=== PATIENT | male | born 1940 | race Caucasian/White ===

== ENCOUNTER 2022-04-02 15:10 | Emergency (ER) | payer OTHER ==
[~2022-04-02] VITALS: Ht 180.3 cm; Wt 93.4 kg
[~2022-04-02 15:10] MED LIST: ASPIR-TRIN325 MG PO; BENAZEPRIL HCL20 MG PO; CLOPIDOGREL75 MG PO; FLOMAX0.4 MG PO; HYDROCODON-ACE1 EACH PO; METOPROLOL TART25 MG PO; OMEGA-3100 MG; PRAVASTATIN SOD80 MG PO; ZYRTEC10 M3 PO; eliquis PO
[2022-04-02 15:56] LABS: BASOPHILS % 0.4 % (0.0-1.0); EOSINOPHILS # (AUTO) 0.1 (0.0-0.4); EOSINOPHILS % 1.5 % (0.0-6.0); HEMATOCRIT 44.4 % (38.2-49.6); HEMOGLOBIN 15.1 g/dL (14.0-18.0); LYMPHOCYTES # (AUTO) 1.3 (1.0-3.2); LYMPHOCYTES % 19.3 % (18.0-39.1); MEAN CORPUSCULAR HEMOGLOBIN 32.2 pg (28-32); MEAN CORPUSCULAR VOLUME 94.7 fL (81-99); MONOCYTES # (AUTO) 0.4 (0.2-0.8); MONOCYTES % 5.2 % (4.4-11.3); NEUTROPHILS # (AUTO) 4.9 (2.1-6.9); NEUTROPHILS % 73.5 % (38.7-80.0); PLATELET COUNT 191 x10e3/uL (140-360); RED BLOOD COUNT 4.69 x10e6/uL (4.3-5.7); RED CELL DISTRIBUTION WIDTH 11.9 % (11.7-14.4)
[2022-04-02 16:09] LABS: INR 1.98
[2022-04-02 16:18] LABS: ALBUMIN/GLOBULIN RATIO 1.3 (0.8-2.0); ANION GAP 13.9 mmol/L (8-16); CALCIUM 9.3 mg/dL (8.4-10.2); CREATININE, SERUM 1.04 mg/dL (0.72-1.25); POTASSIUM 3.9 mmol/L (3.5-5.1)
[2022-04-02] MEDS ORDERED: TETANUS/DIPHTHERIA TOX ADULT 0.5 ML SYR IM ONE (16:30)
[2022-04-02] MEDS ORDERED: Morphine 4mg INJECTION 4 MG/ML INJ IV ONE (16:30)
[2022-04-02] MEDS ORDERED: Morphine 2mg Syringe 2 MG/ML SYR ONE (16:36)
[2022-04-02] MEDS ORDERED: Morphine 4mg INJECTION 4 MG/ML INJ IV PRN (16:45)
[2022-04-02] MEDS ORDERED: HYDRALAZINE HCL 20 MG/ML VIAL IV PRN (16:45)
[2022-04-02] MEDS ORDERED: HYDROCODON-ACE1 EA11 PO (16:56)
[2022-04-02] MEDS ORDERED: ONDANSETRON HCL INJ 2MG/ML 2ML 2 MG/ML VIAL IV STA (17:12)
== END 2022-04-02 18:05 | disposition home or self-care (01) ==
LOC: ER 15:25
DX: S00.83XA Contusion of other part of head, initial encounter (principal); W01.198A Fall on same level from slipping, tripping and stumbling with subsequent striking against other object, initial encounter; Y92.89 Other specified places as the place of occurrence of the external cause; I10 Essential (primary) hypertension; Z86.73 Personal history of transient ischemic attack (TIA), and cerebral infarction without residual deficits
CPT/HCPCS: 36415; 70450; 70486; 71045; 72125; 72170; 80053; 84484; 85025; 85610; 90471; 90714; 93005; 99284; J2270 ×2; J2405

== ENCOUNTER 2024-01-02 13:58 | Inpatient (IN) | payer MEDICARE, OTHER ==
[~2024-01-02] VITALS: Ht 180.3 cm; Wt 93.4 kg
[~2024-01-02 13:58] MED LIST changes: +HYDROCODON-ACE1 EA11 PO
[2024-01-02 14:32] LABS: BASOPHILS % 0.5 % (0.0-1.0); EOSINOPHILS # (AUTO) 0.2 (0.0-0.4); EOSINOPHILS % 3.1 % (0.0-6.0); HEMATOCRIT 43.5 % (38.2-49.6); HEMOGLOBIN 14.8 g/dL (14.0-18.0); LYMPHOCYTES # (AUTO) 1.3 (1.0-3.2); MEAN CORPUSCULAR HEMOGLOBIN 33.3 pg (28-32); MONOCYTES # (AUTO) 0.2 (0.2-0.8); MONOCYTES % 4.2 % (4.4-11.3); NEUTROPHILS # (AUTO) 3.8 (2.1-6.9); NEUTROPHILS % 68.8 % (38.7-80.0); PLATELET COUNT 182 x10e3/uL (140-360); RED BLOOD COUNT 4.44 x10e6/uL (4.3-5.7); RED CELL DISTRIBUTION WIDTH 12.1 % (11.7-14.4); WHITE BLOOD COUNT 5.52 x10e3/uL (4.8-10.8)
[2024-01-02 14:41] LABS: INR 1.99; PROTHROMBIN TIME 23.7 seconds (11.9-14.5)
[2024-01-02 14:42] LABS: PARTIAL THROMBOPLASTIN TIME 31.8 seconds (23.8-35.5)
[2024-01-02 14:48] LABS: ALANINE AMINOTRANSFERASE 16 IU/L (0-55); ALBUMIN 3.6 g/dL (3.5-5.0); ALBUMIN/GLOBULIN RATIO 1.2 (0.8-2.0); ALKALINE PHOSPHATASE 52 IU/L (40-150); ANION GAP 14.3 mmol/L (8-16); BILIRUBIN,TOTAL 0.7 mg/dL (0.2-1.2); BLOOD UREA NITROGEN 15 mg/dL (7-26); BUN/CREATININE RATIO 15 (6-25); CALCIUM 8.6 mg/dL (8.4-10.2); CARBON DIOXIDE 21 mmol/L (22-29); CHLORIDE 109 mmol/L (98-107); CREATINE KINASE 80 IU/L (30-200); CREATININE, SERUM 1.01 mg/dL (0.72-1.25); EST GLOMERULAR FILTRATION RATE 75 ML/MIN (>=60); GLUCOSE 189 mg/dL (74-118); POTASSIUM 4.3 mmol/L (3.5-5.1); SODIUM 140 mmol/L (136-145); TOTAL PROTEIN 6.5 g/dL (6.5-8.1)
[2024-01-02 14:54] LABS: TROPONIN I < 0.001 ng/mL (0-0.300)
[2024-01-02 15:08] LABS: BILIRUBIN,URINE NEGATIVE (NEGATIVE); CLARITY,URINE SL CLOUDY (CLEAR); COLOR,URINE YELLOW (YELLOW); GLUCOSE, URINE NEGATIVE (NEGATIVE); KETONES,URINE NEGATIVE (NEGATIVE); LEUKOCYTE ESTERASE ,URINE NEGATIVE (NEGATIVE); NITRITE,URINE NEGATIVE (NEGATIVE); PH,URINE 5.5 (5 - 7); PROTEIN,URINE DIPSTICK NEGATIVE (NEGATIVE); URINE UROBILINOGEN 1 mg/dL (0.2 - 1)
[2024-01-02 15:19] LABS: BACTERIA,URINE FEW /HPF; MUCUS,URINE MODERATE (RARE)
[2024-01-02] MEDS: HYDRALAZINE HCL 20 MG/ML VIAL IV ONE (16:22)
[2024-01-02] MEDS: SODIUM CHLORIDE 0.9% 500ML 500 ML IV ONE (16:22)
[2024-01-02] MEDS: SODIUM CHLORIDE 0.9% 1000ML 1,000 ML IV SCH (17:30)
[2024-01-02] MEDS: FAMOTIDINE 20 MG/2 ML VIAL IV SCH (17:30)
[2024-01-02] MEDS: HYDRALAZINE HCL 20 MG/ML VIAL IV STA (18:01)
[2024-01-02 18:23] VITALS: PULSE 66; RESP 18; TEMP 98.2
[2024-01-02 20:00] VITALS: BP 197/79; PULSE 76; RESP 21; TEMP 97.5; O2SAT 98
[2024-01-02] MEDS: HYDROCODONE/APAP 5MG-325MG TAB PO ONE (20:13)
[2024-01-02] MEDS: ONDANSETRON HCL INJ 2MG/ML 2ML 2 MG/ML VIAL IV PRN (20:51)
[2024-01-02] MEDS: HYDRALAZINE HCL 20 MG/ML VIAL IV PRN (20:51)
[2024-01-02] MEDS: ACETAMINOPHEN 325 MG TAB PO PRN (20:51)
[2024-01-02] MEDS: HYDROCODONE/APAP 5MG-325MG TAB PO PRN (20:52)
[2024-01-02] MEDS ORDERED: FINASTERIDE5 MG PO (21:02)
[2024-01-02] MEDS ORDERED: WARFARIN SODIUM3 MG PO (21:06)
[2024-01-02] MEDS ORDERED: WARFARIN SODIU7.5 MG PO (21:07)
[2024-01-02] MEDS: NITROGLYCERIN 0.4 MG SUBL SL PRN (21:16)
[2024-01-02] MEDS ORDERED: METOPROLOL TARTRATE 25 MG TAB PO SCH (21:30)
[2024-01-02] MEDS: BENAZEPRIL HCL 10 MG TAB PO SCH (22:23)
[2024-01-02] MEDS: METOPROLOL TARTRATE 25 MG TAB PO SCH (22:24)
[2024-01-03] VITALS (7 sets, daily range): BP systolic 130–216; BP diastolic 68–88; PULSE 61–91; RESP 17–20; TEMP 97.6–98.6; O2SAT 96–98
[2024-01-03 08:08] LABS: BASOPHILS # (AUTO) 0.1 (0.0-0.1); BASOPHILS % 0.7 % (0.0-1.0); EOSINOPHILS # (AUTO) 0.2 (0.0-0.4); EOSINOPHILS % 2.3 % (0.0-6.0); HEMATOCRIT 43.5 % (38.2-49.6); HEMOGLOBIN 14.5 g/dL (14.0-18.0); LYMPHOCYTES # (AUTO) 1.5 (1.0-3.2); LYMPHOCYTES % 21.5 % (18.0-39.1); MEAN CORPUSCULAR HEMOGLOBIN 33.1 pg (28-32); MEAN CORPUSCULAR HGB CONC 33.3 g/dL (31-35); MEAN CORPUSCULAR VOLUME 99.3 fL (81-99); MONOCYTES # (AUTO) 0.5 (0.2-0.8); MONOCYTES % 6.9 % (4.4-11.3); NEUTROPHILS # (AUTO) 4.8 (2.1-6.9); NEUTROPHILS % 68.3 % (38.7-80.0); PLATELET COUNT 178 x10e3/uL (140-360); RED BLOOD COUNT 4.38 x10e6/uL (4.3-5.7); RED CELL DISTRIBUTION WIDTH 12.4 % (11.7-14.4); WHITE BLOOD COUNT 7.06 x10e3/uL (4.8-10.8)
[2024-01-03 08:50] LABS: ALBUMIN 3.3 g/dL (3.5-5.0); ALBUMIN/GLOBULIN RATIO 1.2 (0.8-2.0); ANION GAP 12.1 mmol/L (8-16); BILIRUBIN,TOTAL 0.7 mg/dL (0.2-1.2); CALCIUM 8.3 mg/dL (8.4-10.2); CHOL/HDL RATIO 4.6 (3.9-4.7); CREATININE, SERUM 0.93 mg/dL (0.72-1.25); POTASSIUM 4.1 mmol/L (3.5-5.1); TOTAL PROTEIN 6.1 g/dL (6.5-8.1)
[2024-01-03 08:57] LABS: TROPONIN I 0.032 ng/mL (0-0.300)
[2024-01-03] MEDS: AMLODIPINE BESYLATE 5 MG TAB PO SCH ×2 (10:19→22:45)
[2024-01-03 15:50] LABS: TROPONIN I 0.04 ng/mL (0-0.300)
[2024-01-03] MEDS: WARFARIN SOD 5 MG TAB PO SCH (19:30)
[2024-01-03] MEDS: FINASTERIDE 5 MG TAB PO SCH (21:10)
[2024-01-03] MEDS: BENAZEPRIL HCL 10 MG TAB PO SCH (21:11)
[2024-01-03] MEDS: SIMVASTATIN 40 MG TAB PO SCH (21:11)
[2024-01-03] MEDS: ENOXAPARIN SODIUM INJ 100 MG/ML SYR SC SCH (21:12)
[2024-01-04] VITALS (8 sets, daily range): BP systolic 164–194; BP diastolic 62–84; PULSE 53–81; RESP 16–22; TEMP 97.3–98.7; O2SAT 95–98
[2024-01-04] MEDS: TAMSULOSIN HCL 0.4 MG CAP PO SCH (05:58)
[2024-01-04] MEDS: CLOPIDOGREL BISULFATE 75 MG TAB PO SCH (05:58)
[2024-01-04 07:18] LABS: CALCIUM 8.3 mg/dL (8.4-10.2); CREATININE, SERUM 0.91 mg/dL (0.72-1.25); PHOSPHORUS 3.3 MG/DL (2.3-4.7)
[2024-01-04] MEDS: HYDROCODONE/APAP 5MG-325MG TAB PO SCH (09:00)
[2024-01-04] MEDS ORDERED: LOSARTAN POTASSIUM 100 MG TAB PO SCH (10:45)
[2024-01-04] MEDS: HYDRALAZINE HCL 25 MG TAB PO SCH (10:59)
[2024-01-05] VITALS: BP 173/75; PULSE 83; RESP 23; TEMP 97.6; O2SAT 97
[2024-01-05 04:00] VITALS: BP 145/64; PULSE 91; RESP 22; TEMP 97.6; O2SAT 95
[2024-01-05 09:22] VITALS: BP 131/57; PULSE 78; RESP 19; TEMP 97.6; O2SAT 97
[2024-01-05 10:03] VITALS: BP 131/57; PULSE 78; RESP 19; TEMP 97.6; O2SAT 97
[2024-01-05] MEDS ORDERED: ONDANSETRON HCL 4 MG ORAL DISINTEGRATING TAB PO PRN (10:45)
[2024-01-05 12:23] VITALS: BP 132/61; PULSE 75; RESP 18; TEMP 97.7; O2SAT 95
[2024-01-05 20:00] VITALS: BP 145/94; PULSE 84; RESP 18; TEMP 97.4; O2SAT 97
[2024-01-06] VITALS: BP 141/62; PULSE 98; RESP 17; TEMP 98.1; O2SAT 97
[2024-01-06 00:51] VITALS: BP 145/94; PULSE 84; RESP 18; TEMP 97.4; O2SAT 97
[2024-01-06 04:00] VITALS: BP 102/47; PULSE 88; RESP 19; TEMP 98.2; O2SAT 96
[2024-01-06 08:25] VITALS: BP 135/63; PULSE 73; RESP 18; TEMP 98.2; O2SAT 95
[2024-01-06 09:35] VITALS: BP 135/63; PULSE 73; RESP 18; TEMP 98.2; O2SAT 95
[2024-01-06] MEDS ORDERED: ACETAMINOPHEN325 M1 PO (12:55)
[2024-01-06] MEDS ORDERED: NITROSTAT0.4 MG SL (12:55)
[2024-01-06] MEDS ORDERED: HYDRALAZINE HCL25 MG PO (12:55)
[2024-01-06] MEDS ORDERED: NORVASC5 MG PO (12:55)
[2024-01-06] MEDS ORDERED: ONDANSETRON ODT4 MG PO (12:55)
[2024-01-06 13:44] VITALS: BP 119/63; PULSE 80; RESP 15; TEMP 97.2; O2SAT 93
[2024-01-06] MEDS ORDERED: WARFARIN SOD 5 MG TAB PO SCH (17:00)
[2024-01-07] MEDS ORDERED: FAMOTIDINE 20 MG TAB PO SCH (07:30)
== END 2024-01-06 14:26 | disposition home or self-care (01) | DRG 305 ==
LOC: ER 14:13 → ERHOLD 16:54 → MED/SURG 19:13 → OBSVTOIN 01-05 09:01
PROVIDERS: ADMIT Internal Medicine; ATTEND Internal Medicine
DX: I16.0 Hypertensive urgency (principal); I45.2 Bifascicular block; I69.351 Hemiplegia and hemiparesis following cerebral infarction affecting right dominant side; E86.0 Dehydration; I25.10 Atherosclerotic heart disease of native coronary artery without angina pectoris; I48.0 Paroxysmal atrial fibrillation; Z11.52 Encounter for screening for COVID-19; I10 Essential (primary) hypertension; E78.1 Pure hyperglyceridemia; N40.1 Benign prostatic hyperplasia with lower urinary tract symptoms; R33.8 Other retention of urine; I49.5 Sick sinus syndrome; Z95.5 Presence of coronary angioplasty implant and graft; H91.90 Unspecified hearing loss, unspecified ear; Z79.01 Long term (current) use of anticoagulants; Z95.828 Presence of other vascular implants and grafts; Z79.02 Long term (current) use of antithrombotics/antiplatelets; Z79.899 Other long term (current) drug therapy; Z88.5 Allergy status to narcotic agent; Z91.041 Radiographic dye allergy status
CPT/HCPCS: 36415; 70450; 71045; 71250; 80048; 80053; 80061; 81001; 82550; 83735; 83880; 84100; 84484; 85025; 85610; 85730; 93005; 93306; 99284; G0378; J0360; J1650; J2405; J7030; J7040; U0002